=== PATIENT | female | born 1975 | race African-American/Black ===

== ENCOUNTER 2016-09-04 21:51 | Emergency (ER) | payer SELFPAY | END 2016-09-04 23:03 | disposition home or self-care (01) | LOC: OHEAST 21:51 | DX: Z02.1 Encounter for pre-employment examination (principal) | CPT/HCPCS: 99201; G0463 ==

== ENCOUNTER 2017-10-30 16:31 | Emergency (ER) | payer BC ==
[2017-10-30 17:26] VITALS: BP 109/61
--- NOTE | 2017-10-30 17:54 | UC ---
Throat Pain/Nasal Nilo HPI - HPI Summary HPI Summary: exposed to strep this week also had some crampy abdomen pains this morning - she wanted to be sure she does not have an early case of strep or a urinary tract infection prior to a five day business trip---no fevers chills, vaginal discharge - History of Current Complaint Chief Complaint: UCGeneralIllness Stated Complaint: SORE THROAT Time Seen by Provider: 10/30/17 17:25 Hx Obtained From: Patient ?: Yes - 20 weeks Onset/Duration: Sudden Onset Pain Intensity: 0 Pain Scale Used: 0-10 Numeric Cough: None Associated Signs & Symptoms: Positive: Negative - Allergies/Home Medications Allergies/Adverse Reactions: Allergies Allergy/AdvReac Type Severity Reaction Status Date / Time No Known Allergies Allergy Verified 10/30/17 17:22 PMH/Surg Hx/FS Hx/Imm Hx Previously Healthy: Yes - Surgical History Surgical History: None - Family History Known Family History: Positive: None - Social History Occupation: Employed Full-time Lives: With Family Alcohol Use: None Substance Use Type: None Smoking Status (MU): Never Smoked Tobacco - Immunization History Most Recent Influenza Vaccination: unknown Most Recent Tetanus Shot: 08/22/13 Most Recent Pneumonia Vaccination: none Review of Systems Constitutional: Negative Skin: Negative Eyes: Negative ENT: Negative Respiratory: Negative Cardiovascular: Negative Gastrointestinal: Negative Genitourinary: Negative Motor: Negative Neurovascular: Negative Musculoskeletal: Negative Neurological: Negative Psychological: Negative Is Patient Immunocompromised?: No All Other Systems Reviewed And Are Negative: Yes Physical Exam Triage Information Reviewed: Yes Appearance: Well-Appearing, No Pain Distress, Well-Nourished Vital Signs: Initial Vital Signs Temp 98.9 F 10/30/17 17:23 Pulse 78 10/30/17 17:23 Resp 18 10/30/17 17:23 BP 109/61 10/30/17 17:23 Pulse Ox 100 10/30/17 17:23 Vital Signs Reviewed: Yes Eye Exam: Normal Eyes: Positive: Conjunctiva Clear ENT Exam: Normal ENT: Positive: Normal ENT inspection, Hearing grossly normal, Pharynx normal, TMs normal, Uvula midline. Negative: Nasal congestion, Trismus, Muffled voice, Hoarse voice, Dental tenderness, Sinus tenderness Dental Exam: Normal Neck exam: Normal Neck: Positive: Supple, Nontender, No Lymphadenopathy Respiratory Exam: Normal Respiratory: Positive: Chest non-tender, Lungs clear, Normal breath sounds, No respiratory distress, No accessory muscle use Cardiovascular Exam: Normal Cardiovascular: Positive: RRR, No Murmur, Pulses Normal, Brisk Capillary Refill Abdominal Exam: Normal Abdomen Description: Positive: Nontender, No Organomegaly, Soft Musculoskeletal Exam: Normal Musculoskeletal: Positive: Strength Intact, ROM Intact, No Edema Neurological Exam: Normal Neurological: Positive: Alert, Muscle Tone Normal Psychological Exam: Normal Skin Exam: Normal Diagnostics - Laboratory Diagnostic Studies Completed/Ordered: rst (-), ua wnl Throat Pain/Nasal Course/Dx - Course Assessment/Plan: tylenol, increase fluids, throat jw, follow with pcp - Differential Dx/Diagnosis Provider Diagnoses: strep exposure, abd pain resolved Discharge - Sign-Out/Discharge Documenting (check all that apply): Patient Departure All imaging exams completed and their final reports reviewed: No Studies - Discharge Plan Condition: Stable Disposition: HOME Patient Education Materials: Abdominal Pain in (ED) Referrals: No Primary Care Phys,NOPCP [Primary Care Provider] - Additional Instructions: follow with your pcp this week or go directly to Emergency department for return of symptoms - Billing Disposition and Condition Condition: STABLE Disposition: Home
== END 2017-10-30 17:50 | disposition home or self-care (01) ==
LOC: UCEAST 16:31
DX: R10.9 Unspecified abdominal pain (principal); Z20.828 Contact with and (suspected) exposure to other viral communicable diseases
CPT/HCPCS: 81003; 87651; 99211; G0463

== ENCOUNTER 2018-03-18 13:42 | Inpatient (IN) | payer BC ==
[2018-03-18] MEDS ORDERED: Buffered Lidocaine 1% SYRIN* 1 ML/SYRINGE INTRADERM ONE (14:17)
[2018-03-18] MEDS ORDERED: Dinoprostone* 10 MG VAG.SUPP VAGINAL ONE (14:17)
[2018-03-18] MEDS ORDERED: Lactated Ringers 1000 ML Bag* 1,000 ML IV ONE (14:17)
--- NOTE | 2018-03-18 14:58 | PN ---
Progress Note - Progress Note Date of Service: 03/18/18 Note: S: pt presents for term induction of labor O: VSS, afebrile FHT 125bpm. Moderate variability. +Accels. No decels UCs mild q 5 min VE previously performed by A: IUP at term here for induction No evidence of metabolic acidemia P: Cervidil placed per MD order. Monitor per protocol
[2018-03-18] MEDS ORDERED: Lactated Ringers 1000 ML Bag* 1,000 ML IV SCH (15:00)
--- NOTE | 2018-03-18 15:36 | HP ---
General Information - General Information Maternal Age: 42 Grav: 2 Para: 1 SAB: 0 IEA: 0 Estimated Due Date: 03/24/18 Determined By: LMP Maternal Blood Type and Rh: B Positive - Results this Serology/RPR Result: Non-Reactive Rubella Result: Immune HBsAg Result: Negative HIV Result: Negative GBS Culture Result: Negative Past Medical History Delivery History: See Records Pertinent Past Medical History: See Records Pertinent Past Surgical History: See Records Pertinent Family History: See Records - Antepartal Records Antepartal Records: Reviewed, Complicated by: - advanced maternal age IVF Review of Systems Constitutional: Comfortable CV Complaint: No Respiratory: Shortness of Breath: No Gastrointestinal: No Nausea/Vomiting Genitourinary: No Dysuria, No Bleeding, No Leaking Fluid Musculoskeletal: No Complaint Neurological: No Headache Movement: Normal Exam Allergies/Adverse Reactions: Allergies No Known Allergies Allergy (Verified 03/05/18 21:52) T: 98.6 BP111/65 P: 78 - Measurements Height: 5 ft 2 in Weight: 146 lb Weight in lbs: 146.374655 Body Mass Index (BMI): 26.6 Pre- Weight: 115 lb Weight Gained This : 31 lbs and 0 ozs - Exam Breast: Breast Exam Deferred CVA: No CVA Tenderness Extremities: No Edema Heart: Normal Rhythm/Heart Sounds HEENT: No Significant Findings Lungs: Clear Bilaterally Rectal: Rectal Exam Deferred Reflexes: DTR 2+ Thyroid: No Thyromegaly - Abdominal Exam Abdomen Exam: Non-Tender - Ultrasound/Biophysical Profile Ultrasound Status: Not Done Targeted Exam Findings Cervical Exam: 2cm Effacement: Thick Station: -3 Presenting Part: Vertex Membrane Status: Intact EFM Findings - External Monitor Findings Baseline Heart Rate: 140 External Monitor Findings: Accelerations Present, No Pattern of Variable or Late Decelerations, Variability Moderate Contractions: Irregular Assessment/Plan - Assessment Pt 42 yo at 39 1/7 weeks presents for induction - Plan Plan: Induction
[2018-03-19] MEDS ORDERED: Oxytocin in LR* 20 UNITS/1,000 ML BAG IVPB SCH (09:00)
[2018-03-19 10:06] LABS: ABS Basophils 0 10^3/ul (0-0.2); ABS Eosinophils 0 10^3/ul (0-0.6); ABS Lymphocytes 1.4 10^3/ul (1.0-4.8); ABS Monocytes 0.5 10^3/ul (0-0.8); ABS Neutrophils 5.4 10^3/ul (1.5-7.7); ABS Nucleated RBC 0 10^3/ul; Eosinophil % 0.4 %; Hematocrit 32 % (35-47); Hemoglobin 10.5 g/dl (12.0-16.0); Lymphocyte % 18.7 %; Mean Corpuscular HGB Conc 33 g/dl (31-36); Mean Corpuscular Hemoglobin 26 pg (27-31); Mean Corpuscular Volume 79 fL (80-97); Mean Platelet Volume 8.2 fL (7.4-10.4); Nucleated Red Blood Cells % 0.1; Platelet Count 287 10^3/ul (150-450); Red Blood Count 3.98 10^6/ul (4.00-5.40); Red Cell Distribution Width 16 % (10.5-15); White Blood Count 7.3 10^3/ul (3.5-10.8)
--- NOTE | 2018-03-19 11:49 | PN ---
Progress Note - Progress Note Date of Service: 03/19/18 SOAP: Subjective: Pt reports that she slept well overnight. Feeling occasional intermittent contractions. Discussed her preferences for labor, she would like an epidural with active labor, otherwise no particular preferences/ concerns. Objective: Cervical exam: 3cm/ 60%/ -1/ posterior/ soft/ vtx FHR: Baseline 130/ + accels/ moderate variability/ no decels UCs:Every 5 minutes Pitocin at 6 mu/min Assessment: 42 year old at 39 2/7 weeks gestation being induced due to pt's age, no evidence of acidemia, membranes intact. Plan: Options discussed with pt, including further cervical ripening vs trial of Pitocin. Recommended trial of Pitocin, with Locke score of 7-8 and given that it is her second baby. Pt agreed to try Pitocin, IV access established and Pitocin initiated. Will recheck if pt is in need of pain medication, or in several hours if no need prior.
--- NOTE | 2018-03-19 13:45 | PN ---
Progress Note - Progress Note Date of Service: 03/19/18 SOAP: Subjective: Pt reports ctx starting to feel stronger, closer together. Coping well. present and supportive. Ambulating in the halls. Objective: FHR baseline- 140, + accels, moderate variability, one possible isolated late decel, however, FHR was not tracing well at that time so it may have been artifact. Monitor adjusted, now tracing well, will observe closely. Pitocin at 8 mu/min UCs every 3-4 minutes BP 118/68 Membranes intact Assessment: Pt appears to be getting more active, although still comfortable. FHR with no clear evidence of acidemia, per RN pt was bending over at time of possible late deceleration so most likely was artifact but nonetheless will monitor closely for further episodes. Plan: Continue Pitocin augmentation, continuous EFM, ambulation as desired as long as continuous EFM can be maintained. Will plan to recheck cervix if pt desires pain relief or after another few hours unless otherwise indicated.
--- NOTE | 2018-03-19 15:37 | PN ---
Progress Note - Progress Note Date of Service: 03/19/18 SOAP: Subjective: Pt reports ctx much more uncomfortable, beginning to be interested in pain relief. Objective: Cervix: 3-4/ posterior/ 70%/ vtx/ -1 FHR: 135 baseline, moderate variability, + accels, no decels UCs: 2-3 minutes, moderate to strong Pitocin at 10 (down from 12) Assessment: Pt still in early labor, but appears to be making some cervical change. No evidence of acidemia. Membranes intact. Plan: Discussed options with pt and . Recommend continuing Pitocin. Can get epidural at any time. Pt would like to continue using nonpharmacologic methods such as tub for another hour and will then check in again, pt will likely want epidural at that time.
[2018-03-19] MEDS ORDERED: OBEPIDURAL* 250 ML EPIDURAL ONE (19:42)
--- NOTE | 2018-03-19 19:42 | PN ---
Progress Note - Progress Note Date of Service: 03/19/18 SOAP: Subjective: Pt reported leaking clear fluid at 1755. She reports ctx continue to feel strong. Objective: ROM plus positive for membrane rupture FHR baseline 140/ + accels/ no decels/ moderate variability UCs Q 2-3 minutes/ moderate Amniotic fluid clear Pitocin at 14 Assessment: 42 year old at 39 2/7 weeks gestation being induced for advanced maternal age, now with spontaneously ruptured membranes, clear fluid. Appears to be getting into more active labor. Plan: Continue Pitocin induction. Epidural when pt feels ready.
[2018-03-19] MEDS ORDERED: Bupivacaine 0.25% SDV PF* 10 ML VIAL INJ ONE (20:07)
[2018-03-19] MEDS ORDERED: EPHEDrine (Pressors)* 50 MG/ML VIAL IV PUSH PRN (20:30)
[2018-03-19] MEDS ORDERED: Phenylephrine IV* 40 MCG/ML 10 ML SYRINGE IV PUSH PRN (20:30)
[2018-03-19] MEDS ORDERED: Lactated Ringers 1000 ML Bag* 1,000 ML IV ONE (20:30)
[2018-03-19] MEDS ORDERED: Sodium Citrate/Citric Acid* 15 ML UDC PO PRN (20:30)
[2018-03-19] MEDS ORDERED: Famotidine TAB* 20 MG PO PRN (20:30)
[2018-03-19] MEDS ORDERED: OBEPIDURAL* 250 ML EPIDURAL SCH (21:00)
[2018-03-19] MEDS ORDERED: Lactated Ringers 1000 ML Bag* 1,000 ML IV SCH (21:00)
--- NOTE | 2018-03-19 21:26 | PN ---
Progress Note - Progress Note Date of Service: 03/19/18 SOAP: Subjective: Pt very comfortable after epidural. Slightly aware of ctx but feels no pain. Objective: FHR: Baseline 140, + accels, occasional isolated late decels, moderate variability UCs: Q3-4 minutes Pitocin at 12 mu/min Cervical exam: 4cm/ 80%/ -1/ midline/ vtx/ bulging bag BP: 120/80, Temp: 98.3 Assessment: Pt comfortable with epidural. FHR tracing largely reassuring with + accels and moderate variability, however, presence of occasional late decels warrants close observation. Labor progress has been slow; however, cervix is now midline and more effaced. ROM-Plus was + for rupture but bulging bag present, probable forebag. Plan: Encourage rest. Continue Pitocin induction. Closely monitor FHR tracing for signs of compromise/ acidemia. Consider AROM of forebag if it does not rupture on its own. Recheck in 2 hours or PRN.
--- NOTE | 2018-03-20 00:16 | PN ---
Progress Note - Progress Note Date of Service: 03/19/18 SOAP: Subjective: Pt very shaky, anxious. Denies pain, but feeling very concerned about baby's well-being, especially after series of decelerations which occurred. at bedside, supportive. Warm blankets applied and support and reassurance provided. Objective: FHR: Pt experienced series of late and variable decelerations as low as 85. Decelerations resolved with turning off Pitocin, O2 and position changes. Since turning off Pitocin ctx have spaced out to about every 7-8 minutes, Pitocin restarted at 2 mu/min. Currently FHR with baseline 130, moderate variability, early decels. Temp 98.0 Cervix 4-5 cm/ 80%/ -1 Forebag ruptured spontaneously to clear fluid Assessment: Category II FHR tracing, improved to Category I after Pitocin turned off. Rate of dilation continues to be slow. Plan: Discussed options with pt and moving forward. If FHR continues to be reflective of adequate perfusion, will continue to labor, and gradually try increasing the Pitocin. If FHR continues to exhibit decelerations and dilation does not increase, a may be necessary. Pt states that she is not at all opposed to if concerns persist. Will monitor closely , recheck cervix in 1-2 hours or PRN.
--- NOTE | 2018-03-20 01:37 | PN ---
Progress Note - Progress Note Date of Service: 03/20/18 SOAP: Subjective: Pt feeling more calm, has been dozing some. Shakiness improved but still present. at bedside, supportive. Objective: FHR baseline 130, moderate variability, + accels, early and variable decels UCs: Q4-5 minutes Cervical exam: 5-6cm/ -1/ 100%/ vtx BP:124/71, T: 98.0 Pitocin had been up to 4, now decreased back to 2 mu/ min Assessment: Pt has progressed about 1 cm dilation over the last two hours, FHR continues to be Category II. Plan: Continue to monitor closely. Will recheck cervix in 2 hours or as needed. If continued dilation and baby continues to tolerate labor, continue to labor. If arrest of dilation or intolerance of labor, consult with Dr. Doss for possible delivery.
--- NOTE | 2018-03-20 04:28 | PN ---
Progress Note - Progress Note Date of Service: 03/20/18 SOAP: Subjective: Pt sitting upright in bed, in throne position. She reports increased pressure and increased leaking of fluid. She continues to have many questions about plan of care, and requested that I consult with MD. at bedside, supportive. Objective: Cervical exam: 6-7 cm/ 90%/ 0 station Clear fluid FHR: 125 baseline/ moderate variability/ + accels/ no decels UCs: 6 minutes Pitocin off at this time Assessment: 42 year old being induced for advanced maternal age, at 39 4/7 weeks gestation, in active labor, making slow but steady progress. FHR currently Category I. Plan: Consulted by phone with Dr. Doss. Discussed course of labor including slow but steady dilation, intolerance of increasing Pitocin to bring ctx closer together than every 5 minutes, episodes of late and variable decelerations, pt's age and IVF , concerns about potential placental insufficiency. Dr. Doss recommended discontinuing Pitocin and allowing labor to progress naturally and give pt and baby a break. He did not recommend delivery at this time. Discussed his recommendations with pt, who was comfortable with this plan. She requests cervical exam again 2 hours from previous.
--- NOTE | 2018-03-20 05:33 | PN ---
Progress Note - Progress Note Date of Service: 03/20/18 SOAP: Subjective: Pt reports continued pressure and leaking of fluid, although she reports that she is overall comfortable. She is concerned about the frequency of contractions having slowed without the use of Pitocin. Objective: Cervix: 7-8cm/ 90%/ 0 station FHR: baseline 125, + accels, early decels, moderate variability UCs: 4-7 Amniotic fluid clear Last BP 127/76, has had a few elevated as high as 143/89, no complaints of headache, vision changes Urine output good Temp 99.4 Assessment: 42 year old in active labor, continuing to make slow but steady progress, no evidence of acidemia, intermittent elevated BPs, likely secondary to discomfort and fatigue, temperature elevated from previous but afebrile Plan: Continue expectant management. May consider restarting Pitocin if ctx space out further. Closely monitor temp and BP. If BP becomes more consistantly elevated will draw preeclampsia labs.
[2018-03-20] MEDS ORDERED: ceFOXitin 2 GM IVPREMIX* 2 GM/50 ML BAG IVPB ONE (09:06)
[2018-03-20] MEDS ORDERED: ceFOXitin 2 GM IVPREMIX* 2 GM/50 ML BAG ONE (09:06)
[2018-03-20] MEDS ORDERED: fentaNYL* 50 MCG/ML 2 ML VIAL (100 MCG VIAL) ONE (09:15)
[2018-03-20] MEDS ORDERED: Morphine PF AMP (0.5MG/ML)* 5 MG/10 ML AMP ONE (09:16)
[2018-03-20] MEDS ORDERED: KETAMINE HCL* 50 MG/ML 10 ML VIAL ONE (09:16)
[2018-03-20] MEDS ORDERED: Midazolam* 1 MG/ML 5 ML VIAL (5 MG) ONE (09:16)
[2018-03-20] MEDS ORDERED: Ketorolac INJ* 30 MG/ML 1 ML VIAL IV PRN (09:39)
[2018-03-20] MEDS ORDERED: PROCHLORPERAZINE INJ 5 MG/ML 2 ML VIAL IV PRN (09:39)
[2018-03-20] MEDS ORDERED: DiMENhydriNATE IV* 50 MG/ML VIAL IV PUSH PRN (09:39)
[2018-03-20] MEDS ORDERED: Ondansetron INJ* 2 MG/ML VIAL IV PRN (09:39)
[2018-03-20] MEDS ORDERED: Nalbuphine* 10 MG/ML 1 ML VIAL IV PRN (09:39)
[2018-03-20] MEDS ORDERED: Naloxone* 0.4 MG/ML 1 ML VIAL IV PRN ×2 (09:39→09:42)
[2018-03-20] MEDS ORDERED: Scopolamine 1.5 mg* PATCH TRANSDERM PRN (09:39)
[2018-03-20] MEDS ORDERED: Naloxone* 2 MG in NS 0.9% 250 ML* 250 ML IV PRN (09:39)
[2018-03-20] MEDS ORDERED: fentaNYL* 50 MCG/ML 2 ML VIAL (100 MCG VIAL) IV PRN (09:42)
[2018-03-20] MEDS ORDERED: EPHEDrine (Pressors)* 50 MG/ML VIAL ONE (10:03)
[2018-03-20] MEDS ORDERED: Scopolamine 1.5 mg* PATCH ONE (10:03)
[2018-03-20] MEDS ORDERED: Lidocaine 2% EPI 1:200000 MPF*10-20 ML VIAL ONE (10:03)
[2018-03-20] MEDS ORDERED: OXYTOCIN* 10 UNITS/ML 1 ML VIAL ONE (10:03)
[2018-03-20] MEDS ORDERED: Dexamethasone IV* 4 MG/ML 1 ML (4 MG) ONE (10:03)
[2018-03-20] MEDS ORDERED: PROCHLORPERAZINE INJ 5 MG/ML 2 ML VIAL ONE (10:03)
[2018-03-20] MEDS ORDERED: Lidocaine 2% PF* 10 ML AMP ONE (10:03)
[2018-03-20] MEDS ORDERED: Phenylephrine INJ* 10 MG/ML 1 ML VIAL (10 MG) ONE (10:03)
[2018-03-20] MEDS ORDERED: Ondansetron INJ* 2 MG/ML VIAL ONE (10:03)
[2018-03-20] MEDS ORDERED: Ketorolac INJ* 30 MG/ML 1 ML VIAL ONE (10:03)
[2018-03-20] MEDS ORDERED: Zolpidem TAB* 5 MG PO PRN (10:18)
[2018-03-20] MEDS ORDERED: Glycerin ADULT SUPP PR PRN (10:18)
[2018-03-20] MEDS ORDERED: Dibucaine 1% 28.35 GM TUBE PR PRN (10:18)
[2018-03-20] MEDS ORDERED: Acetaminophen TAB* 325 MG PO PRN (10:18)
[2018-03-20] MEDS ORDERED: Witch Hazel PAD* JAR TOPICAL PRN (10:18)
[2018-03-20] MEDS ORDERED: Lactated Ringers 1000 ML Bag* 1,000 ML IV SCH (11:00)
[2018-03-20] MEDS: oxyCODONE/Acetamin 5/325 MG* TAB PO PRN ×3 (14:24→21:31)
--- NOTE | 2018-03-20 15:11 | OP ---
CC: [facility] OPERATIVE REPORT: DATE OF OPERATION: 03/20/18 DATE OF : 77 SURGEON: Óscar Doss MD [employer] MECH[employer]IC: Marla Garduno CNM ANESTHESIA: Epidural. PRE-OP DIAGNOSES: Labor with persistent category 2 and 3 tracing and fetus not tolerating contractio ns or augmentation of labor. POST-OP DIAGNOSES: Labor with persistent category 2 and 3 tracing and fetus not tolerating contracti ons or augmentation of labor. OPERATIVE PROCEDURE: Primary low transverse section. FINDINGS: Delivery of a viable male infant with a weight of 8 pounds 0 ounces with Apgars of 8 and 9 of clear fluid. The placenta, uterus, adnexa, bowel and bladder were all within normal limits and t here were no complications. ESTIMATED BLOOD LOSS: 700 cc. FLUIDS: She received 1200 cc of IV crystalloid fluid. URINE OUTPUT: Clear. DESCRIPTION OF PROCEDURE: The patient was taken to the operating room where she was identified. She was placed on the operating table, where an epidural anesthetic was obtained without difficulty. Sh e was placed in the supine position with a leftward tilt, prepped and draped in a normal sterile [facility] ion. A Pfannenstiel skin incision was made with a knife and carried through to underlying layer of f ascia. The fascia was then nicked in the midline and extended laterally with curved Benz scissors. The fascia was then grasped superiorly and inferiorly with Karthik clamps and dissected off sharply fr om the rectus muscle. The rectus muscle was in the midline bluntly. The peritoneum was id entified, grasped with pickups, and entered sharply with Metzenbaum scissors and extended superiorly and inferiorly sharply. A bladder blade was inserted into the patient's abdomen. A low uterine inci chantal was made with a knife at about 3 cm above the bladder reflection, extended laterally with bandag e scissors. The amniotic fluid was noted to be clear. The infant's head was then grasped and delive red atraumatically. The rest of the infant's body was then delivered. The cord was clamped and cut and the was handed off to waiting desk representative. Cord bloods were then obtained. The placenta was removed manually. The uterus was then exteriorized, cleared of all clot and debris using moist laparotomy sponges. The uterine incision was then closed using 0 Polysorb suture in a running locked fashion with a second imbricating layer of 0 Polysorb suture with good hemostasis noted. At this po int, the uterus was returned to the patient's abdomen. The gutters were then cleared of all clot and debris using irrigation fluid and moist laparotomy sponges. The fluid was suctioned from the patien t's abdomen and pelvis. All the sponges were removed from the patient's abdomen. Sponge, lap, and in strument counts were correct x1. The peritoneum was then closed using 3-0 Polysorb suture in a runni ng fashion. The fascia was closed using 0 Polysorb suture in a running fashion and the skin was clos ed with 4-0 Monocryl subcuticular stitch. Sponge, lap, and needle counts were correct x2. She was t hen transferred to the recovery room area in stable condition. [id number]/[facility] #: [id number]
[2018-03-20] MEDS: Simethicone TAB* 80 MG TAB.CHEW PO SCH ×2 (18:23→21:31)
[2018-03-20] MEDS: Docusate CAP* 100 MG PO SCH (21:23)
[2018-03-21] MEDS: oxyCODONE/Acetamin 5/325 MG* TAB PO PRN ×6 (00:44→21:31)
[2018-03-21] MEDS ORDERED: oxyCODONE/Acetamin 5/325 MG* TAB PO PRN (01:30)
[2018-03-21] MEDS: Ibuprofen TAB* 600 MG PO PRN ×4 (03:30→21:32)
[2018-03-21] MEDS: Simethicone TAB* 80 MG TAB.CHEW PO SCH ×5 (08:57→21:32)
[2018-03-21] MEDS: Docusate CAP* 100 MG PO SCH ×3 (08:57→21:31)
[2018-03-21 09:53] LABS: Hematocrit 25 % (35-47); Hemoglobin 7.7 g/dl (12.0-16.0); Mean Corpuscular HGB Conc 31 g/dl (31-36); Mean Corpuscular Hemoglobin 25 pg (27-31); Mean Corpuscular Volume 81 fL (80-97); Mean Platelet Volume 8.5 fL (7.4-10.4); Platelet Count 242 10^3/ul (150-450); Red Blood Count 3.04 10^6/ul (4.00-5.40); Red Cell Distribution Width 16 % (10.5-15); White Blood Count 16.1 10^3/ul (3.5-10.8)
[2018-03-21] MEDS: Ferrous Gluconate TAB* 324 MG TAB PO SCH ×2 (10:33→21:32)
[2018-03-22] MEDS: oxyCODONE/Acetamin 5/325 MG* TAB PO PRN ×4 (04:03→20:39)
[2018-03-22] MEDS: Ibuprofen TAB* 600 MG PO PRN ×4 (04:03→23:29)
[2018-03-22] MEDS: Ferrous Gluconate TAB* 324 MG TAB PO SCH ×2 (09:02→20:39)
[2018-03-22] MEDS: Docusate CAP* 100 MG PO SCH ×3 (09:02→20:39)
[2018-03-22] MEDS: Simethicone TAB* 80 MG TAB.CHEW PO SCH ×4 (09:02→20:39)
[2018-03-22] MEDS ORDERED: Calcium Carbonate CHEW TAB* 500 MG (TUMS) PO SCH (11:00)
[2018-03-23] MEDS: oxyCODONE/Acetamin 5/325 MG* TAB PO PRN ×2 (00:43→11:11)
[2018-03-23] MEDS: Ibuprofen TAB* 600 MG PO PRN ×2 (06:08→11:53)
[2018-03-23 07:17] VITALS: BP 126/77
[2018-03-23] MEDS: Simethicone TAB* 80 MG TAB.CHEW PO SCH ×2 (09:35→11:53)
[2018-03-23] MEDS: Docusate CAP* 100 MG PO SCH (09:35)
[2018-03-23] MEDS: Ferrous Gluconate TAB* 324 MG TAB PO SCH (09:35)
[2018-03-23] MEDS ORDERED: Scopolamine PATCH Remove* 1 NOTE MISC PATCH OFF PRN (09:40)
== END 2018-03-23 12:30 | disposition home or self-care (01) | DRG 540 ==
LOC: MCHOBOUT 13:42 → MCHOB 14:19
PROVIDERS: ADMIT Obstetrics & Gynecology; ATTEND Obstetrics & Gynecology
PROC: 3E033VJ Introduction of Other Hormone into Peripheral Vein, Percutaneous Approach (ICD-10-PCS; 2018-03-20)
PROC: 10D00Z1 Extraction of Products of Conception, Low, Open Approach (ICD-10-PCS; principal; 2018-03-20 09:03)
DX: O32.4XX0 Maternal care for high head at term, not applicable or unspecified (principal); O76 Abnormality in fetal heart rate and rhythm complicating labor and delivery; O90.81 Anemia of the puerperium; D64.9 Anemia, unspecified; Z3A.39 39 weeks gestation of pregnancy; Z37.0 Single live birth
CPT/HCPCS: 36415; 84112; 85025; 85027; 86850; 86900; 86901; A9270-GY; J0694; J0780; J1100; J1885; J2001; J2250; J2405; J2590; J3010; J3490

== ENCOUNTER 2018-03-28 13:29 | Inpatient (IN) | payer BC ==
[2018-03-28] MEDS ORDERED: NS 0.9% 1000 ML** 1,000 ML IV ONE (13:45)
--- NOTE | 2018-03-28 13:53 | ED ---
HPI Cardiac - HPI Summary HPI Summary: Patient is a 42 y/o F presenting to ED with complaints of SOB, palpitations, and cough. She is 1 week post pardem, palpitations and SOB have been present since a week ago, cough onset 2.5 days ago. She also notes that she had some BLE edema which has since resolved. Palpitations are reported to have progressively worsened. She denies chest pain and abnormal vaginal bleeding. Patient reports she is A0. She denies Hx of pre-eclampsia, DVT, PE, HTN, diabetes, HLD. PSHx of for most recent , no complications. Patient called MD, was advised to come to ED to rule out PE. On triage, pain is denied, nothing is noted to aggravate/alleviate Sx. Home medications and allergies are reviewed. - History of Current Complaint Chief Complaint: EDShortnessOfBreath Stated Complaint: COUGH/SOB Time Seen by Provider: 03/28/18 13:44 Hx Obtained From: Patient Onset/Duration: Started Days Ago - cough 2.5 days, Started Weeks Ago - SOB and cough since a week ago, Still Present, Resolved - BLE edema Timing: Constant, Lasting Days - cough 2.5 days, Lasting Weeks - SOB and cough since a week ago Current Severity: None - pain denied Pain Intensity: 0 Pain Scale Used: 0-10 Numeric - 0/10 Character: Other: - palpitations Aggravating Factor(s): Nothing Alleviating Factor(s): Nothing Associated Signs and Symptoms: Positive: Shortness of Breath, Palpitations, Cough. Negative: Chest Pain - Allergy/Home Medications Allergies/Adverse Reactions: Allergies Allergy/AdvReac Type Severity Reaction Status Date / Time No Known Allergies Allergy Verified 03/05/18 21:52 Home Medications: Home Medications [id number]/Iron/Folic/Dha [ Formula-Dha Softgel] 1 cap PO DAILY [History Confirmed 03/28/18] PMH/Surg Hx/FS Hx/Imm Hx Endocrine/Hematology History: Denies: Hx Diabetes Cardiovascular History: Denies: Hx Hypercholesterolemia, Hx Hypertension Sensory History: Denies: Hx Legally Blind, Hx Deafness Opthamlomology History: Denies: Hx Legally Blind EENT History: Denies: Hx Deafness Infectious Disease History: No Infectious Disease History: Denies: Traveled Outside the [place] in Last 30 Days - Family History Known Family History: Negative: Blood Disorder - Social History Alcohol Use: None Substance Use Type: Reports: None Smoking Status (MU): Never Smoked Tobacco Have You Smoked in the Last Year: No Review of Systems Positive: Palpitations. Negative: Chest Pain Positive: Shortness Of Breath, Cough All Other Systems Reviewed And Are Negative: Yes Physical Exam - Summary Physical Exam Summary: GENERAL: Patient is a well-developed and nourished female who is lying comfortable in the stretcher. Patient is not in any acute respiratory distress. surgical site is clean, dry and intact. HEAD AND FACE: Normocephalic EYES: PERRLA, EOMI x 2. EARS: Hearing grossly intact. MOUTH: Oropharynx within normal limits. NECK: Supple, trachea is midline, no adenopathy, no JVD, no carotid bruit. CHEST: Symmetric, no tenderness at palpation LUNGS: Clear to auscultation bilaterally. No wheezing or crackles. CVS: tachycardic, S1 and S2 present, no murmurs or gallops appreciated. ABDOMEN: Soft, non-tender. Bowel sounds are normal. No abdominal abnormal pulsations. EXTREMITIES: Full ROM in all major joints, no edema, no cyanosis or clubbing. NEURO: Alert and oriented x 3. No acute neurological deficits. Speech is normal and follows commands. Triage Information Reviewed: Yes Vital Signs On Initial Exam: Initial Vitals Temp Pulse Resp BP Pulse Ox 99.3 F 128 22 157/110 95 03/28/18 13:33 03/28/18 13:33 03/28/18 13:33 03/28/18 13:33 03/28/18 13:33 Vital Signs Reviewed: Yes Diagnostics - Vital Signs Vital Signs Temp Pulse Resp BP Pulse Ox 03/28/18 13:33 99.3 F 128 22 157/110 95 - Laboratory Result Diagrams: 03/28/18 13:58 03/28/18 13:58 Lab Statement: Any lab studies that have been ordered have been reviewed, and results considered in the medical decision making process. - CT CTA CHEST/THORAX CT Interpretation Completed By: Radiologist Summary of CT Findings: CTA CHEST/THORAX IMPRESSION: NO PULMONARY ARTERIAL FILLING DEFECT TO SUGGEST PULMONARY EMBOLISM. SMALL RIGHT PLEURAL EFFUSION WITH PATCHY AIRSPACE DISEASE THROUGHOUT BOTH LUNGS. THIS REPORT WAS REVIEWED BY ED PHYSICIAN. - EKG 1400 Cardiac Rate: Tachycardia - rate of 114 BPM EKG Rhythm: Sinus Tachycardia ST Segment: Non-Specific - non-specific changes in lateral leads Summary of EKG Findings: EKG showed sinus tachycardia with rate of 114 BPM, non- specific ST changes in lateral leads, LAFB. Disposition - Course Course Of Treatment: Patient is a 42 y/o F presenting to ED with complaints of SOB, palpitations, and cough. She is 1 week post pardem, palpitations and SOB have been present since a week ago, cough onset 2.5 days ago. She also notes that she had some BLE edema which has since resolved. Palpitations are reported to have progressively worsened. She denies chest pain and abnormal vaginal bleeding. Patient is A0. She denies Hx of pre-eclampsia, DVT, PE, HTN, diabetes, HLD. PSHx of for most recent , no complications. Patient called MD, was advised to come to ED to rule out PE. On physical exam, patient is noted to be tachycardic, surgical area is clean, dry and intact. EKG showed sinus tachycardia with rate of 114 BPM, non-specific ST changes in lateral leads, LAFB. Labs showed WBC 11.2, Hgb 11.3, MCH 26, RDW 18 , Plt count 494, MPV 7.3, carbon dioxide 20, anion gap 12, BUN/creatinine ratio 22.4, BNP 692. First trop was 0.06, second was 0.06. UA showed 1+ ketones, 2+ blood, present squamous epith cells, no bacteria, no glucose. Influenza A, B were negative. CTA CHEST/THORAX IMPRESSION: NO PULMONARY ARTERIAL FILLING DEFECT TO SUGGEST PULMONARY EMBOLISM. SMALL RIGHT PLEURAL EFFUSION WITH PATCHY AIRSPACE DISEASE THROUGHOUT BOTH LUNGS. During ED course, patient received fluids, vancomycin HCl 1000 mg in sodium chloride 250 mls @ 166.667 mls/hr IVPB ONCE, piperacillin sod/tazobactam sod 3.375 gm in sodium chloride 100 mls @ 200 mls/hr IVPB ED ONCE, Lasix 40 mg IV ONCE. Patient's case was discussed with Dr. Horvath, he will come down to evaluate patient. 1538 - Patient's case was discussed with Dr. Higgins, Dr. Higgins accepts for admission. 8481 - Dr. Horvath has evaluated patient. - Diagnoses Provider Diagnoses: Cardiomyopathy, PNA (pneumonia) - Physician Notifications Discussed Care Of Patient With: Stephon Hrovath Time Discussed With Above Provider: 15:19 Instructed by Provider To: Other - Patient's case was discussed with Dr. Horvath, he will come down to evaluate patient. 1536 - Patient's case was discussed with Dr. Higgins, Dr. Higgins accepts for admission. 1705 - Dr. Horvath has evaluated patient. - Critical Care Time Critical Care Time: 30-74 min - 30 minutes CCT Discharge - Sign-Out/Discharge Documenting (check all that apply): Patient Departure - admit - Discharge Plan Condition: Stable Disposition: ADMITTED TO [facility] - Billing Disposition and Condition Condition: STABLE Disposition: Admitted to [facility] - Attestation Statements Document Initiated by Anant: Yes Documenting Scribe: AVNI STERLING Provider For Whom Anant is Documenting (Include Credential): LAMONTE CHO MD Scribe Attestation: AVNI Landon , scribed for LAMONTE CHO MD on 03/28/18 at 2126. Scribe Documentation Reviewed: Yes Provider Attestation: The documentation as recorded by the suniibAVNI hickey accurately reflects the service I personally performed and the decisions made by me, LAMONTE CHO MD Status of Scribe Document: Viewed
[2018-03-28 14:19] LABS: ABS Basophils 0.1 10^3/ul (0-0.2); ABS Eosinophils 0.1 10^3/ul (0-0.6); ABS Lymphocytes 2.7 10^3/ul (1.0-4.8); ABS Monocytes 0.8 10^3/ul (0-0.8); ABS Neutrophils 7.5 10^3/ul (1.5-7.7); ABS Nucleated RBC 0 10^3/ul; Activated Partial Thrombo Time 26.8 seconds (26.0-36.3); Eosinophil % 0.7 %; Hematocrit 35 % (35-47); Hemoglobin 11.3 g/dl (12.0-16.0); INR 0.9 (0.77-1.02); Mean Corpuscular HGB Conc 32 g/dl (31-36); Mean Corpuscular Hemoglobin 26 pg (27-31); Mean Corpuscular Volume 82 fL (80-97); Mean Platelet Volume 7.3 fL (7.4-10.4); Nucleated Red Blood Cells % 0.1; Platelet Count 494 10^3/ul (150-450); Red Blood Count 4.29 10^6/ul (4.00-5.40); Red Cell Distribution Width 18 % (10.5-15); White Blood Count 11.2 10^3/ul (3.5-10.8)
[2018-03-28 14:28] LABS: Albumin 3.8 g/dL (3.2-5.2); Albumin/Globulin Ratio 1.1 (1-3); BUN/Creatinine Ratio 22.4 (8-20); Calcium 9.4 mg/dL (8.6-10.3); EGFR African American 101.5 (>60); EGFR Non-African American 83.9 (>60); Globulin 3.4 g/dL (2-4); Potassium 4.4 mmol/L (3.5-5.0); Total Bilirubin 0.4 mg/dL (0.2-1.0); Total Protein 7.2 g/dL (6.4-8.9)
[2018-03-28 14:31] LABS: Troponin I 0.06 ng/mL (<0.04)
[2018-03-28] MEDS ORDERED: Iohexol 350* (CONTRAST) 500 ML MDV IV ONE (14:36)
[2018-03-28] MEDS ORDERED: Azithromycin IV(*) 500 MG in NS 0.9% 250 ML* 250 ML IVPB ONE (15:16)
[2018-03-28] MEDS ORDERED: cefTRIAXone(*) 1 GM in NS 0.9% 50 ML* 50 ML IVPB ONE (15:16)
[2018-03-28] MEDS ORDERED: Piperacillin/Tazobac ADVAN(*) 3.375 GM in NS 0.9% 100 ML* 100 ML IVPB ONE (15:29)
[2018-03-28] MEDS ORDERED: Vancomycin(*) 1,000 MG in NS 0.9% 250 ML* 250 ML IVPB ONE (15:29)
[2018-03-28] MEDS ORDERED: Furosemide IV* 10 MG/ML VIAL (40 MG) IV ONE (15:39)
[2018-03-28] MEDS ORDERED: NS 0.9% 250 ML* 250 ML ONE (15:49)
[2018-03-28] MEDS ORDERED: Vancomycin(*) 1,000 MG BAG/ADDV IVPB ONE (15:49)
[2018-03-28 15:59] LABS: Influenza A Molecular NEGATIVE (Negative); Influenza B Molecular NEGATIVE (Negative)
[2018-03-28 16:19] LABS: Urine Appearance Clear; Urine Bacteria Absent (Absent); Urine Bilirubin Negative (Negative); Urine Blood 2+ (Negative); Urine Color Straw; Urine Glucose Negative (Negative); Urine Ketones 1+ (Negative); Urine Nitrite Negative (Negative); Urine Protein Negative (Negative); Urine Red Blood Cell Trace(0-2/hpf) (Absent); Urine Squamous Epithelial Cell Present (Absent); Urine Urobilinogen Negative (Negative); Urine White Blood Cell Trace(0-5/hpf) (Absent)
--- NOTE | 2018-03-28 16:35 | ECHO ---
Patient: SHAWN ZHU [facility] Rec#: [id number] : 1975 Date: 03/28/2018 Age: 42y Height: 163 cm / 64.2 in Weight: 54 kg / 119.0 lbs Sex: F BSA: 1.57 Room#: 16 Admit Date#: 03/28/2018 Type: Inpatient Referring: Vivi Locke Reading: Stephon Horvath MD Dry Starch Operator: Akila Raymundo RDCS,RDMS Transthoracic Echocardiogram Indication: ABN EKG, Dyspnea BP: 157/110 HR: 68 Rhythm: NSR Findings History: 1 week post (). Technical Comments: The study quality is fair. Left Ventricle: The left ventricular chamber size is normal. Mild concentric left ventricular hypertrophy is observed. There is diffuse global hypokinesis of the left ventricle. The estimated ejection fraction is 25-30%. There is no consistent Doppler evidence of clinically significant diastolic dysfunction. Left Atrium: The left atrial chamber size is normal. Right Ventricle: The right ventricular chamber size and systolic function are within normal limits. Right Atrium: The right atrium is slightly dilated. Aortic Valve: The aortic valve is trileaflet. There is no evidence of aortic valve thickening. Systolic excursion of the aortic valve is normal. There is no evidence of aortic regurgitation. There is no evidence of aortic stenosis. Mitral Valve: The mitral valve leaflets appear normal. There is trace to mild mitral regurgitation. There is no evidence of mitral stenosis. Tricuspid Valve: The tricuspid valve leaflets are normal. There is trace tricuspid regurgitation. Unable to estimate the right ventricular systolic pressure. Pulmonic Valve: The pulmonic valve appears normal. There is a trace pulmonic regurgitation. Pericardium: There is no significant pericardial effusion. Aorta: The aortic root appears normal. There is no dilatation of the aortic arch. Pulmonary Artery: The main pulmonary artery appears normal. Venous: There is an approximate 50% respiratory change in the inferior vena cava dimension. Summary: There was not any prior study for comparison. Conclusions Mild concentric left ventricular hypertrophy is observed. There is diffuse global hypokinesis of the left ventricle. The estimated ejection fraction is 25-30%. The right ventricular chamber size and systolic function are within normal limits. Systolic excursion of the aortic valve is normal. There is no evidence of aortic stenosis. There is trace to mild mitral regurgitation. There is trace tricuspid regurgitation. Unable to estimate the right ventricular systolic pressure. There is no significant pericardial effusion. Measurements Name Value Normal Range RVIDd (AP) 2D 2.3 cm (0.9 - 2.6) RVDdMajor (2D) 2.3 cm (2.2 - 4.4) RAd ISD 4CH 5 cm (3.4 - 4.9) RA (A4C)W 4 cm (2.9 - 4.6) IVSd (2D) 1.1 cm (0.6 - 1) LVPWd (2D) 1.1 cm (0.6 - 1) LVIDd (2D) 4.6 cm (3.6 - 5.4) LVIDs (2D) 3.3 cm - LV FS (2D) 28 % (25 - 45) Aortic Annulus 1.8 cm (1.4 - 2.6) Ao root diameter (2D) 2.3 cm (2.1 - 3.5) Ascending Ao 2.2 cm (2.1 - 3.4) Aortic arch 2.4 cm (1.8 - 3.4) LA dimension (AP) 2D 3.5 cm (2.3 - 3.8) LAd ISD 4CH 5 cm (2.9 - 5.3) LA ISD 4CH W 4.3 cm (2.5 - 4.5) Name Value Normal Range MV E-wave Vmax 1 m/sec - MV deceleration time 119 msec - MV A-wave Vmax 0.4 m/sec - MV E:A ratio 2.7 ratio - LV septal e' Vmax 0.07 m/sec - LV lateral e' Vmax 0.09 m/sec - LV E:e' septal ratio 15 ratio - LV E:e' lateral ratio 11 ratio - Name Value Normal Range AV Vmax 1.2 m/sec - AV VTI 21 cm - AV peak gradient 6 mmHg - AV mean gradient 3 mmHg - LVOT Vmax 1 m/sec - LVOT VTI 17 cm - LVOT peak gradient 4 mmHg - LVOT mean gradient 2 mmHg - DEVAN Vmax 0.8 m/sec - Name Value Normal Range RAP 8 mmHg - IVC diameter 1.7 cm - Name Value Normal Range PV Vmax 0.8 m/sec - PV peak gradient 2.6 mmHg -
[2018-03-28] MEDS ORDERED: oxyCODONE/Acetamin 5/325 MG* TAB PO PRN (18:29)
--- NOTE | 2018-03-28 18:56 | CONS ---
CARDIOLOGY CONSULTATION: DATE OF CONSULT: 03/28/18. INDICATION FOR CONSULTATION: Congestive heart failure. HISTORY OF PRESENT ILLNESS: The patient is a 42-year-old female who is 1 week past section, delivery of a healthy baby. The patient has been getting more short of breath for the past 3 or 4 days. She has been having a nonproductive cough, fevers. She arrives in the emergency room, her heart rate is 125, her blood pressure is 150/100. The patient had an echocardiogram which showed an ejection fraction of 30% with no significant valvular abnormalities. She has a global hypokinesis. No focal wall motion abnormalities. In speaking with the patient, she has no history of cardiac problems. She denies any palpitations. She denies any chest pain. She just has the shortness of breath and exertion intolerance. In the emergency room, her laboratory study shows a white count of 11, hemoglobin 11, hematocrit 35, platelet count 464,000. Chemistries are within normal limits. BUN and creatinine are normal. Her troponin level is 0.06. BNP is 692. The patient did have a CTA in the emergency room, which showed no evidence of pulmonary emboli, small right pleural effusion. PAST MEDICAL HISTORY: Unremarkable except for her recent section. PAST SURGICAL HISTORY: section a week ago. OUTPATIENT MEDICATIONS: 1. Colace. 2. Iron tablets. 3. OxyContin for pain control. 4. vitamin. ALLERGIES: No known drug allergies. FAMILY HISTORY: Noncontributory. SOCIAL HISTORY: She is . She is a professor. She denies tobacco or alcohol use. REVIEW OF SYSTEMS: Negative for fevers and chills. Positive for weight changes. Negative for changes in bowel or bladder habits. PHYSICAL EXAM: Height is 5 feet 4 inches, weight is 120 pounds. Temperature is 99.3, heart rate is 115, blood pressure 157/110, respiratory rate is 20, oxygen saturation 95% on room air. Sclerae anicteric. Oropharynx is pink without erythema. Carotids are 2+ without bruits. JVD is normal. Thyroid is normal. Cardiac Exam: S1, S2. No obvious S3. No murmurs on exam. The PMI is normal. Lungs are clear in the upper lung choi, the lower lung choi have rales at the bases. There is no dullness to percussion. Abdomen is soft, mildly tender. Normoactive bowel sounds. Extremities show no edema. She has 2 + pulses throughout. The patient is awake, alert and oriented. She moves all 4 extremities equally. DIAGNOSTIC STUDIES/LAB DATA: Laboratory studies were as above. IMPRESSION: This is a 42-year-old female who is 1 week post section for healthy delivery of a baby who has been having increased shortness of breath and mild cough. Her exam is consistent with congestive heart failure. Her echocardiogram shows an ejection fraction of 30% with global hypokinesis, no significant valvular abnormalities. The patient likely has cardiopathy. I will add a thyroid function to her laboratory studies. In general, the patient needs appropriate medical therapy. The patient will be started on lisinopril 5 mg a day, Coreg 3.125 mg b.i.d. and spironolactone 25 mg a day. The patient will be observed overnight. Likely, the patient will go home tomorrow. I will see the patient in followup as an outpatient for repeat studies. [id number]/[facility] #: [id number] STEFFI
--- NOTE | 2018-03-28 20:10 | HP ---
ADMISSION HISTORY AND PHYSICAL: DATE OF ADMISSION: 03/28/18 CHIEF COMPLAINT: Shortness of breath. HISTORY OF PRESENT ILLNESS: The patient is a 42-year-old Af[place] lady, who was born in [facility] with no significant past medical history, who was with her second child and delivered her child 8 days prior to her admission. Since her delivery she mentions that she had been complaining of shortness of breath, which she mentioned was thought to be due to anemia by her OB. She mentions that she had not been transfused during her last hospitalization stay. However, on review of her laboratories, on 03/21/18, her hemoglobin was found to be 7.7, is currently at 11.3, and hence I am unclear whether she was or was not transfused prior to discharge. She mentioned that she was discharged last Wednesday and still was found to be short of breath. She then followed up with Dr. Carvajal's office on the following day on due to her shortness of breath and increasing edema, and mentioned that she had been advised that her edema and shortness of breath would subside and should resolve in a few days. However, persistence of her signs and symptoms as well as development of nonproductive cough and dyspnea on exertion about 1 or 2 days prior to admission, led her to consult friend of hers, who happens to be a assistant signal maintainer, who then suggested that she be checked for DVT given her significant lower extremity edema at that time. However, she mentioned that as her cough worsened, her bilateral lower extremity edema improved and by the time that she got to the ED, her edema is actually minimal, but still with significant shortness of breath and dyspnea on exertion. She was then found to have mildly elevated troponins and sinus tachycardia. Dr. Horvath was then consulted by the ED, who mentioned that she likely has cardiomyopathy. A 2D echo was done in the ED, which showed diffuse global hypokinesis of the left ventricle with an EF of 25% to 30% with trace MR and TR. CTA of the chest was done, which ruled her out for PE. In the ED, she received normal saline, Lasix, Rocephin, Zosyn, azithromycin, and vancomycin due to possibility of pneumonia. PAST MEDICAL HISTORY: Unremarkable and no documented past medical history. PAST SURGICAL HISTORY: Status post 8 days ago. No other past surgical history. SOCIAL HISTORY: She denies any history of smoking, illicit drug use, no alcohol abuse. She is , who lives with her and 2 children. 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 REVIEW OF SYSTEMS: The patient complains of dyspnea on exertion and shortness of breath as described above, but denied any recent headaches, dizziness, fever or chills. Denies any nausea or vomiting. Denies any chest pain. Denies any abdominal pain, diarrhea or constipation, pain and/or increased frequency on urination, myalgias, arthralgias, throat pain or new skin lesions. The rest of the 14-point review of systems are otherwise unremarkable. PHYSICAL EXAMINATION GENERAL APPEARANCE: The patient is awake, alert, and oriented x3, not in acute distress. VITAL SIGNS: Shows the most recent vital signs of record with blood pressure of 149/111, heart rate 110 per minute, respiratory rate 26 per minute, saturating at 99% at 2L nasal cannula. HEENT: Normocephalic. Atraumatic. PERRLA. Extraocular muscles intact. Negative for icterus. Moist oral mucosa. Negative throat erythema. NECK: Soft, supple with no cervical lymphadenopathy, no JVD. CHEST: Clear to auscultation bilaterally. Good air entry. No wheezes, rales or rhonchi. HEART: S1, S2, slightly tachycardic. No murmurs, rubs or gallops. ABDOMEN: Soft, nondistended, nontender. Normoactive bowel sounds x4 quadrants. EXTREMITIES: No cyanosis, clubbing or edema. PSYCHIATRIC: No active psychosis, depression, suicidal or homicidal ideation. SKIN: Warm to touch. DIAGNOSTIC STUDIES/LAB DATA: Most recent and pertinent laboratories drawn shows CBC with a WBC of 11.2, H and H of 11.3 and 35, platelets of 494. INR of 0.9 and aPPT of 26.8. Sodium and potassium of 135 and 4.4. BUN and creatinine of 17 and 0.76. LFTs were found to be normal. Troponin is mildly elevated at 0.06 x2. BNP of 692. Urinalysis did not show any pyuria. A flu screen is negative. ASSESSMENT AND PLAN: The patient is a 42-year-old -H[place] lady, being admitted for worsening shortness of breath and dyspnea on exertion, likely due to cardiomyopathy. 1. cardiomyopathy. We will place the patient on Lasix 40 mg IV daily at this point, given we will place her on lisinopril and carvedilol tonight. She will start lisinopril at 5 mg p.o. daily, carvedilol 3.125 mg p.o. b.i.d., and we will order spironolactone to start for tomorrow as recommended by Cardiology Service/Dr. Horvath and hence appreciate his input and help. D/W Dr. Higgins who spoke directly with Dr. Horvath. We will continue to trend troponins at this time. 2. status. Given the medications that she is on, she had been advised to stop her baby at this time and we will defer. 3. DVT prophylaxis. We will place her on SCDs and encourage ambulation with senior court office assistant. 4. Disposition. For PT eval as above. [id number]/[facility] #: [id number] MTDD
[2018-03-28] MEDS: Carvedilol TAB* 3.125 MG PO SCH (21:44)
[2018-03-29 06:52] LABS: Hematocrit 37 % (35-47); Hemoglobin 12.1 g/dl (12.0-16.0); Mean Corpuscular HGB Conc 33 g/dl (31-36); Mean Corpuscular Hemoglobin 27 pg (27-31); Mean Corpuscular Volume 82 fL (80-97); Mean Platelet Volume 7.2 fL (7.4-10.4); Platelet Count 456 10^3/ul (150-450); Red Cell Distribution Width 18 % (10.5-15); White Blood Count 8.1 10^3/ul (3.5-10.8)
[2018-03-29 06:58] LABS: ABS Neutrophils 5.6 10^3/ul (1.5-7.7)
[2018-03-29 07:14] LABS: Albumin 3.7 g/dL (3.2-5.2); Albumin/Globulin Ratio 1.1 (1-3); BUN/Creatinine Ratio 23.2 (8-20); Calcium 9.1 mg/dL (8.6-10.3); EGFR Non-African American 76.8 (>60); Globulin 3.4 g/dL (2-4); Magnesium 2.1 mg/dL (1.9-2.7); Phosphorus 4.4 mg/dL (2.5-5.0); Potassium 4.2 mmol/L (3.5-5.0); Total Bilirubin 0.4 mg/dL (0.2-1.0); Total Protein 7.1 g/dL (6.4-8.9)
[2018-03-29 07:20] LABS: ABS Basophils 0.1 10^3/ul (0-0.2); ABS Eosinophils 0.1 10^3/ul (0-0.6); ABS Lymphocytes 1.7 10^3/ul (1.0-4.8); ABS Monocytes 0.6 10^3/ul (0-0.8); Troponin I 0.05 ng/mL (<0.04)
[2018-03-29 07:23] LABS: ABS Basophils 0 10^3/ul (0-0.2); ABS Eosinophils 0.4 10^3/ul (0-0.6); ABS Neutrophils 5.8 10^3/ul (1.5-7.7); Lymphocytes % 16 %; Monocytes % 6 %; Neutrophil % 71 %; Nucleated Red Blood Cells/100 1 (0-0); Polychromasia 1+; Variant Lymph % 2 % (0-6)
[2018-03-29] MEDS ORDERED: Ferrous Gluconate TAB* 324 MG TAB PO SCH (09:00)
[2018-03-29] MEDS ORDERED: Furosemide IV* 10 MG/ML VIAL (40 MG) IV SCH (09:00)
[2018-03-29] MEDS: Carvedilol TAB* 3.125 MG PO SCH (09:34)
--- NOTE | 2018-03-29 09:40 | PN ---
Subjective Date of Service: 03/29/18 Interval History: Ms. Nash is feeling a little better today. When she got up to walk to the bathroom from her bed, she got very winded and had palpitations and her nurse reports that her HR went up to 150s. At rest she is in the 120s. She was able to sleep well with the head of the bed at about 30 degrees. She did not try to lie it flat. No chest pain, nausea, vomiting, bloating. Appetite is okay. Objective Active Medications: Docusate Sodium (Colace Cap*) 100 mg PO BID YOLANDA Enalapril Maleate (Vasotec Tab*) 5 mg PO BID YOLANDA Furosemide (Lasix Iv*) 40 mg IV DAILY YOLANDA Lisinopril (Prinivil Tab*) 5 mg PO DAILY YOLANDA Metoprolol Succinate (Toprol Xl Tab*) 25 mg PO DAILY YOLANDA Oxycodone/Acetaminophen (Percocet 5/325 Tab*) 1 tab PO Q4H PRN PRN Reason: PAIN - MODERATE Spironolactone (Aldactone Tab*) 25 mg PO DAILY [facility] Vital Signs - 8 hr 03/29/18 03/29/18 03/29/18 02:43 08:00 08:32 Temperature 98.9 F 97.9 F Pulse Rate 90 109 Respiratory 20 16 16 Rate Blood Pressure 124/80 126/94 (mmHg) O2 Sat by Pulse 100 100 100 Oximetry Oxygen Devices in Use Now: None Appearance: alert, well appearing, sitting on the edge of the bed pumping Eyes: No Scleral Icterus Ears/Nose/Mouth/Throat: NL Teeth, Lips, Gums Neck: - - JVP ~8cm Respiratory: Symmetrical Chest Expansion and Respiratory Effort, - - able to speak in full sentences, no accessory respiratory muscles. occasional cough. lungs are clear with no wheezes or rhonchi. Cardiovascular: - - PMI is displaced laterally. Tachycardic. No murmurs. Abdominal: NL Sounds; No Tenderness; No Distention, - - incision is dressed with steristrips, no drainage or erythema Lymphatic: No Cervical Adenopathy Extremities: No Edema Skin: No Rash or Ulcers Neurological: Alert and Oriented x 3 Result Diagrams: 03/29/18 06:45 03/29/18 06:45 Microbiology and Other Data: Microbiology 03/28/18 15:38 Influenza Types A,B Antigen - Final Nasal Specimen received for Influenza A/B Molecular testing Assess/Plan/Problems-Billing Assessment: This is a 42 year old female with no medical history who is day #9 today and presented to the ED yesterday with shortness of breath that had started approximately day #1 and was found to have a cardiomyopathy with ef 25%. - Patient Problems (1) cardiomyopathy Current Visit: Yes Status: Acute Code(s): O90.3 - PERIPARTUM CARDIOMYOPATHY SNOMED Code(s): 46758696 Comment: Explained plan of care, prognosis, and goals with Vania today Plan to decrease afterload and increase preload She is , and all medications have been run through the [employer] database. I am switching lisinopril to enalapril, and carvedilol to metoprolol because they have been better studied in AND have equal effect on LV recovery. I do not think she is markedly volume overloaded today; will hold on more lasix. Tachycardia is appropriate and expected--the goal is improved functional capacity If she is able to go for a walk and not get too winded or palpitations later this afternoon, she may be able to go home, as the major goal is medication optimization and this can be continued as an outpatient Case discussed with Dr. Horvath, he agrees with this plan and will see her in 6 weeks for a repeat TTE, and in the interim she will see his ELECT[employer] YARD in 3 weeks (2) state Current Visit: Yes Status: Acute Code(s): Z39.2 - ENCOUNTER FOR ROUTINE FOLLOW-UP SNOMED Code(s): 66952158 Comment: incision healing well emotional support offered (3) Mother currently breast-feeding Current Visit: Yes Status: Acute Code(s): LVG3318 - SNOMED Code(s): 770820948 Comment: medication adjustments as above pump in room with good effect
[2018-03-29] MEDS: Metoprolol Succinate XL TAB* 25 MG PO SCH (10:06)
[2018-03-29] MEDS: Spironolactone TAB* 25 MG PO SCH (10:07)
[2018-03-29] MEDS: Enalapril TAB* 5 MG PO SCH ×2 (10:07→21:23)
[2018-03-29] MEDS: Docusate CAP* 100 MG PO SCH ×2 (10:07→21:23)
[2018-03-29] MEDS ORDERED: Furosemide IV* 10 MG/ML VIAL (40 MG) IV SLOW PU ONE ×2 (13:37→23:00)
--- NOTE | 2018-03-29 17:16 | PN ---
Hospitalist Progress Note Date of Service: 03/29/18 Vania requested transfer to [facility]. I spoke with Dr. Price (Advanced Heart Failure) via the Transfer Center and presented the case to her. Dr. Price recommended outpatient follow up in her office. Will request that their office is called tomorrow by Dr. Higgins, who will see her tomorrow ([phone])
[2018-03-29] MEDS ORDERED: Lisinopril TAB* 5 MG PO SCH (18:30)
[2018-03-30 06:47] LABS: Hematocrit 37 % (35-47); Hemoglobin 11.8 g/dl (12.0-16.0); Mean Corpuscular HGB Conc 32 g/dl (31-36); Mean Corpuscular Hemoglobin 26 pg (27-31); Mean Corpuscular Volume 82 fL (80-97); Mean Platelet Volume 7.3 fL (7.4-10.4); Platelet Count 446 10^3/ul (150-450); Red Blood Count 4.49 10^6/ul (4.00-5.40); Red Cell Distribution Width 19 % (10.5-15); White Blood Count 7.2 10^3/ul (3.5-10.8)
[2018-03-30 07:06] LABS: BUN/Creatinine Ratio 30.6 (8-20); Calcium 9.1 mg/dL (8.6-10.3); EGFR African American 89.2 (>60); EGFR Non-African American 73.7 (>60); Magnesium 2.3 mg/dL (1.9-2.7); Potassium 4.2 mmol/L (3.5-5.0)
[2018-03-30 08:24] VITALS: BP 115/84
[2018-03-30] MEDS: Docusate CAP* 100 MG PO SCH (08:26)
[2018-03-30] MEDS: Metoprolol Succinate XL TAB* 25 MG PO SCH (08:26)
[2018-03-30] MEDS: Spironolactone TAB* 25 MG PO SCH (08:26)
[2018-03-30] MEDS: Enalapril TAB* 5 MG PO SCH (08:26)
--- NOTE | 2018-03-30 08:44 | PN ---
Subjective Date of Service: 03/30/18 Interval History: HD#3 on 03/30/2018 42 yo F with recent dx post cardiomyopathy EF 25% dx 9 days post who presented with acute CHF. Overnight no acute events, VSS This morning seen: She is arranging for FU, last nights CXR still with R sided patchy infiltrate, will continue Lasix today and we had a long discussionabout the role of lasix in the future. She is feeling more optimistic Did call Dr. Price office to set up outpt follow up. Also spoke with Dr. Rosales who is recommending anticoagulation PPX for 6 weeks Objective Active Medications: Docusate Sodium (Colace Cap*) 100 mg PO BID [facility] Last Admin: 03/30/18 08:26 Dose: 100 mg Enalapril Maleate (Vasotec Tab*) 5 mg PO BID [facility] Last Admin: 03/30/18 08:26 Dose: 5 mg Metoprolol Succinate (Toprol Xl Tab*) 25 mg PO DAILY [facility] Last Admin: 03/30/18 08:26 Dose: 25 mg Oxycodone/Acetaminophen (Percocet 5/325 Tab*) 1 tab PO Q4H PRN PRN Reason: PAIN - MODERATE Spironolactone (Aldactone Tab*) 25 mg PO DAILY [facility] Last Admin: 03/30/18 08:26 Dose: 25 mg Vital Signs - 8 hr 03/30/18 03/30/18 03:48 08:03 Temperature 96.5 F 97.9 F Pulse Rate 86 91 Respiratory 16 16 Rate Blood Pressure 106/71 115/84 (mmHg) O2 Sat by Pulse 99 100 Oximetry Oxygen Devices in Use Now: None Appearance: Pleasant well woman in NAD Ears/Nose/Mouth/Throat: NL Teeth, Lips, Gums, Mucous Membranes Moist Respiratory: Symmetrical Chest Expansion and Respiratory Effort, - - Very scant crackles RML, otherwise CTABL, cough with deep inspirtation Cardiovascular: NL Sounds; No Murmurs; No JVD, RRR, No Edema Lymphatic: No Cervical Adenopathy Extremities: No Edema Skin: No Rash or Ulcers Neurological: Alert and Oriented x 3 Result Diagrams: 03/30/18 06:06 03/30/18 06:09 Microbiology and Other Data: Microbiology 03/28/18 15:38 Influenza Types A,B Antigen - Final Nasal Specimen received for Influenza A/B Molecular testing Assess/Plan/Problems-Billing Assessment: 42 year old female with no medical history who is day #9 today and presented to the ED yesterday with shortness of breath that had started approximately day #1 and was found to have a cardiomyopathy with ef 25%. - Patient Problems (1) cardiomyopathy Current Visit: Yes Status: Acute Code(s): O90.3 - PERIPARTUM CARDIOMYOPATHY SNOMED Code(s): 58086715 Comment: Explained plan of care, prognosis, and goals with Vania today Plan to decrease afterload and increase preload She has decided not to breastfeed Enalapril, Metoprolol, Spironalctone and PRN Lasix for home in the event she starts to have signs and sx of volume overload, she is obtaining a scale, and is educated on low sodium diet I do not think she is markedly volume overloaded today; though persistent cough with patchy infiltrate OK to continue lasix for 3 days post d/c Tachycardia is appropriate and expected--the goal is improved functional capacity If she is able to go for a walk and not get too winded or palpitations later this afternoon, she may be able to go home, as the major goal is medication optimization and this can be continued as an outpatient --Will add low dose Lasix PRN for addnl 3 days after d/c Following with [facility] on Wednesday (2) DVT prophylaxis Current Visit: Yes Status: Acute Code(s): JOD6599 - SNOMED Code(s): 756583863 Comment: Per OB guidelines to remain on Lovenox PPX dose x 6 weeks Status and Disposition: DC to home
[2018-03-30] MEDS ORDERED: Enoxaparin(*) 40 MG/0.4 ML SYR SUBCUT SCH (13:00)
[2018-03-30] MEDS ORDERED: Furosemide TAB* 40 MG PO SCH (13:00)
--- NOTE | 2018-03-30 19:20 | DS ---
DISCHARGE SUMMARY: PCP: NONE DATE OF ADMISSION: 03/28/18 DATE OF DISCHARGE: 03/30/18 PRIMARY DIAGNOSIS: cardiomyopathy with reduced ejection fraction of 20%. SECONDARY DIAGNOSIS: , status post 9 days section. HISTORY OF PRESENT ILLNESS AND HOSPITAL COURSE: This is a 42-year-old female with no significant past medical history who was with her second child and delivered 8 days prior to presentation via section. She presented to the emergency room as she felt that she had been feeling short of breath and had increasing bilateral lower extremity edema. Also, noted a nonproductive cough and worsening dyspnea with exertion. She was also unable to lie flat and thus she decided to present to the emergency room after discussing with her locomotive lubricating systems clerk who suggested that she come to the emergency room to be checked for DVT. She had no other complaints on review of systems. She was breast-feeding and otherwise felt in her usual state of health, which is excellent. EMERGENCY ROOM COURSE: When she presented to the emergency room, her vital signs were notable for temperature of 99.3, heart rate of 128, respiratory rate of 22, her oxygen saturation was 95% on room air, and her blood pressure was slightly elevated at 154/105. Labs were drawn, which are notable for a white blood cell count of 11.2, hemoglobin of 11.3, hematocrit of 35, and platelet count of 494. The differential on the CBC was normal with no increase in absolute neutrophils. BMP was done, which showed sodium of 135, potassium of 4.4, chloride of 103, carbon dioxide of 20, anion gap of 12, BUN 17, creatinine of 0.76, glucose of 96. LFTs were done, which were unremarkable. Troponin was drawn, which was elevated at 0.06. A BNP was drawn, which was elevated at 692. TSH was drawn, which was normal at 0.71. Urinalysis was done, which was notable only for 1+ ketones and scant blood. Influenza was done, which was negative for rapid flu. Urine culture was sent, which ultimately showed no growth to date. Chest x-ray was done, which showed mild patchy airspace in both the right and left, particularly on the vasculature. A CTA was done to rule out PE, which showed no pulmonary arterial filling defect to suggest pulmonary embolism. There was a small right pleural effusion with diffuse patchy airspace disease throughout those lungs, most consistent with pulmonary edema. At this point, Cardiology was consulted for concern for cardiomyopathy. Echocardiogram was performed in the emergency room, which showed ejection fraction of 25% to 30% with diffuse global hypokinesis of the left ventricle. There was also mild concentric left ventricular hypertrophy observed. There was no valvular disease and the right ventricle chamber size and systolic function are within normal limits. RVSP was unable to be estimated. EKG was done, which showed sinus tachycardia with no evidence of ischemia. The patient was admitted to the medical service for further treatment and diagnosis. Her hospital course by problem is as follows: 1. cardiomyopathy. Her constellation of symptoms as well as her new ejection fraction of 25% to 30% observed on echocardiogram done by security solutions architect in- house are concerning for cardiomyopathy. Cardiology was consulted and LINE INSTALLATION SUPERVISOR followed. They recommended that the patient be optimized from a heart failure standpoint and thus beta-alfredo, BELEM inhibitors, spironolactone were started. She was diuresed with IV Lasix for 2 days and then was felt to be at her euvolemic state. She was educated extensively throughout this hospitalization and was discharged on p.r.n. Lasix and heart failure education. 2. In regards to the patchy infiltrate, the question of pneumonia was entertained. She did receive ceftriaxone and azithromycin in the emergency room , although her white count diminished by hospital day 2 and repeat chest x-ray status post diuresis showed resolution of patchy infiltrate and airspace disease in the left lung. She had minimal residual right-sided patchy infiltrate particularly around her vasculature. She was much improved after 3 days of IV diuresis in the hospital and felt closer to her baseline. Outpatient followup was arranged for the patient. She elects to follow with [facility] on Wednesday and they were arranging for outpatient appointment. We did call and coordinated with Gutierrez, the intake counselor. A copy of this discharge summary as well as her echocardiogram and CTA and chest x-ray reports will be sent in preparation for this appointment. In consultation with LINE INSTALLATION SUPERVISOR who reached out to high-risk OB both at [place] and in [place]. It was determined that the patient should discontinue breast- feeding, which she was in agreeance with. Furthermore, they felt that per their guidelines, the patient should be discharged on prophylactic dose Lovenox for a total of 6 weeks and this was communicated to the patient by LINE INSTALLATION SUPERVISOR after consultation with high-risk maternity groups both in [place] and [place]. The patient has followup scheduled from an OB standpoint with her publicity agent within 1 to 2 weeks and heart failure followup is also arranged. DATA DURING THIS HOSPITALIZATION: Labs on day of discharge: White blood cell count of 7.2, hemoglobin of 11.8, hematocrit of 37, platelets of 446. BMP, sodium 138, potassium 4.2, chloride 104, carbon dioxide 24, BUN 26, creatinine 0.85, glucose 99. Her troponin peaked at 0.6 and then trended down, but stayed at around 0.05. Last troponin checked on 03/29/18. Imaging done in this hospitalization: Results are above and included chest x- ray, chest/thorax CTA, and transthoracic echocardiogram. PHYSICAL EXAMINATION: On day of discharge, the patient was well. She had persistent right middle lobe scant crackles, but otherwise clear lung exam. She is otherwise very healthy and well appearing. ITEMS TO FOLLOW UP ON STATUS POST DISCHARGE: 1. Heart failure with reduced ejection fraction. This patient should have subsequent echocardiogram, which will be managed by [facility]. Furthermore, she may need medical optimization per their guidelines and she was instructed that her medications may change upon her first consultation. I did discharge her with p.r.n. Lasix. She was euvolemic on day of exam, but she planned on getting a scale and watching very closely her volume status and I instructed that it would likely be safe to take Lasix 20 mg p.o. daily for a total of 3 days status post discharge and then discuss further diuresis plans if needed with her advanced heart failure team in [place] as she has persistent right lung lobe findings. ----Furthermore, I counseled the patient that if she were to have fever, worsening shortness of breath, or signs and symptoms of pneumonia with persistent cough that was productive, then she is to contact us and has our contact information and we can discuss prescribing antibiotics if needed. TIME SPENT: A total of 60 minutes were spent in the planning of this discharge with over half of that spent in direct patient care and at the bedside of the patient. The patient and her family have no further questions and stable to be discharged to home as the patient is ambulating tolerating p.o. and voiding normally. Lovenox teaching was done at the bedside for her prophylactic Lovenox , which is recommended by [employer] INSTALLATION SUPERVISOR. If there are any questions in the care of this patient, please do not hesitate to contact us directly. [id number]/[facility] #: [id number] STEFFI
== END 2018-03-30 16:00 | disposition home or self-care (01) | DRG 561 ==
LOC: ED 13:29 → MEDTELE 18:28
PROVIDERS: ADMIT Student in an Organized Health Care Education/Training Program; ATTEND Internal Medicine
DX: O90.3 Peripartum cardiomyopathy (principal); I50.21 Acute systolic (congestive) heart failure; O99.43 Diseases of the circulatory system complicating the puerperium; R00.0 Tachycardia, unspecified
CPT/HCPCS: 36415; 71045; 71275; 80048; 80053; 81003; 81015; 83605; 83735; 83880; 84100; 84443; 84484; 85025; 85027; 85060; 85610; 85730; 87086; 93005; 93306; 99284; A9270-GY; J0456; J1650; J1940; J2543; J3370; Q9967